=== PATIENT | female | born 1935 | race Caucasian/White ===

== ENCOUNTER 2023-08-19 19:42 | Inpatient (IN) ==
[2023-08-19] MEDS: Morphine 4 MG/ML VIAL (1 ml) IV ONE (20:10)
[2023-08-19] MEDS: Ondansetron 4 mg VIAL 2 MG/ML 2 ml VIAL IV ONE (20:11)
[2023-08-19 20:18] LABS: ABS Monocytes 0.3 10^3/uL (0.0-0.9); ABS Neutrophils 3.7 10^3/uL (1.5-7.6); Eosinophil % 0.8 %; Hematocrit 39.3 % (35-45); Hemoglobin 13.2 g/dL (11.5-14.3); Lymphocyte % 20.2 %; Mean Corpuscular Hemoglobin 27.8 pg (27-33); Mean Corpuscular Hgb Conc 33.5 g/dL (31-36); Nucleated Red Blood Cells % 0.1 %/100WBC (0.0-0.8); Platelet Count 193 10^3/uL (150-450); Red Blood Count 4.74 10^6/uL (3.63-4.92); Red Cell Distribution Width 14.3 % (12-17); White Blood Count 5.1 10^3/uL (3.8-11.8)
[2023-08-19 20:25] LABS: Activated Partial Thrombo Time 27.1 seconds (26.0-38.0); INR 0.95 (0.83-1.13)
[2023-08-19 21:06] LABS: Albumin 3.7 g/dL (3.2-5.2); Albumin/Globulin Ratio 1.4 (1-3); Calcium 9.2 mg/dL (8.6-10.3); Creatinine, Serum 1.46 mg/dL (0.51-0.95); Globulin 2.6 g/dL (2-4); Potassium 4.2 mmol/L (3.5-5.0); Total Bilirubin 0.5 mg/dL (0.2-1.0); Total Protein 6.3 g/dL (6.4-8.9); eGFR CKD-EPI 34.8 (>60)
[2023-08-19] MEDS: NS 0.9% 1000 ml BAG 1,000 ML IV SCH (22:22)
[2023-08-20 01:21] LABS: Vitamin D Total 25(OH) 11.5 ng/mL (20-50)
[2023-08-20 06:42] LABS: ABS Eosinophils 0.1 10^3/uL (0.0-0.5); ABS Lymphocytes 0.9 10^3/uL (1.0-4.8); ABS Monocytes 0.3 10^3/uL (0.0-0.9); ABS Neutrophils 9.9 10^3/uL (1.5-7.6); ABS Nucleated RBC 0.01 10^3/ul; Eosinophil % 0.5 %; Hematocrit 39.3 % (35-45); Lymphocyte % 8.3 %; Mean Corpuscular Hemoglobin 28.1 pg (27-33); Mean Corpuscular Hgb Conc 33.1 g/dL (31-36); Mean Corpuscular Volume 84.9 fL (80-97); Mean Platelet Volume 8.1 fL (7.5-11.2); Nucleated Red Blood Cells % 0.1 %/100WBC (0.0-0.8); Platelet Count 174 10^3/uL (150-450); Red Blood Count 4.63 10^6/uL (3.63-4.92); Red Cell Distribution Width 14.3 % (12-17); White Blood Count 11.1 10^3/uL (3.8-11.8)
[2023-08-20 07:02] LABS: Calcium 8.4 mg/dL (8.6-10.3); Creatinine, Serum 1.13 mg/dL (0.51-0.95); Magnesium 2.1 mg/dL (1.9-2.7); Potassium 4.9 mmol/L (3.5-5.0); eGFR CKD-EPI 47.4 (>60)
[2023-08-20 07:10] LABS: Activated Partial Thrombo Time 28.2 seconds (26.0-38.0); INR 0.99 (0.83-1.13)
[2023-08-20] MEDS: Morphine 2 MG/ML SYRINGE IV PRN (08:35)
[2023-08-20] MEDS ORDERED: Heparin 5000 UNITS/ML 1 mL VIAL SUBCUT SCH (09:00)
[2023-08-20] MEDS: Iodixanol (CONTRAST) 320 MG/ML 100 ML SDV IV ONE (09:06)
[2023-08-20] MEDS ORDERED: Lidocaine 2% PF 5 ML VIAL ONE (16:36)
[2023-08-20] MEDS ORDERED: Propofol 10 MG/ML 20 ML BTL ONE (16:36)
[2023-08-20] MEDS ORDERED: fentaNYL 100 mcg/2 ml 50 MCG/ML VIAL ONE (16:36)
[2023-08-20] MEDS ORDERED: Midazolam 2 mg/2 ml VIAL 1 mg/ml 2 ml VIAL (2 mg) ONE (16:36)
[2023-08-20] MEDS ORDERED: Phenylephrine 40 mcg/mL 10mL (400mcg) SYRINGE ONE (17:54)
[2023-08-20] MEDS ORDERED: ceFAZolin VIAL VIAL ONE ×2 (18:14→18:15)
[2023-08-20] MEDS ORDERED: Ondansetron 4 mg VIAL 2 MG/ML 2 ml VIAL ONE (18:27)
[2023-08-20] MEDS ORDERED: Dexamethasone IV 4 MG/ML VIAL 1 ml VIAL ONE (18:27)
[2023-08-20] MEDS ORDERED: HYDROmorphone 0.5 MG/0.5 ML SYRINGE ONE (18:28)
[2023-08-20] MEDS ORDERED: Vancomycin 1,000 MG VIAL ONE (18:53)
[2023-08-20] MEDS ORDERED: Ondansetron ODT 4 mg TAB 4 MG TAB PO PRN (19:51)
[2023-08-20] MEDS ORDERED: Magnesium Hydroxide LIQ 30 ML UDC PO PRN (19:51)
[2023-08-20] MEDS ORDERED: HYDROmorphone 1 MG/1 ML SYRINGE IV PRN (19:54)
[2023-08-20] MEDS ORDERED: Ondansetron 4 mg VIAL 2 MG/ML 2 ml VIAL IV PRN (19:54)
[2023-08-20] MEDS ORDERED: Naloxone 0.4 mg VIAL 0.4 mg/ml 1 ml VIAL IV PRN (19:54)
[2023-08-20] MEDS ORDERED: fentaNYL 100 mcg/2 ml 50 MCG/ML VIAL IV PRN (19:54)
[2023-08-20] MEDS ORDERED: ceFAZolin 2 GM in NS PREMIX 2 GM/100 ML BAG IVPB SCH (20:00)
[2023-08-20] MEDS: Sulfur Hexaflouride MICROSPHR 25 MG VIAL IV ONE (23:12)
[2023-08-20] MEDS: Magnesium Hydroxide LIQ 30 ML UDC PO SCH (23:12)
[2023-08-20] MEDS: Metoclopramide 5 MG/ML VIAL (10 mg) IV SLOW PU ONE (23:12)
[2023-08-20] MEDS: Lactated Ringers 1000 ml BAG 1,000 ML IV SCH (23:25)
[2023-08-21] MEDS: ceFAZolin 2 GM PREMIX 2 GM/50 ML BAG IV SCH (01:59)
[2023-08-21] MEDS: NS 0.9% 500 ml BAG 500 ML IV ONE (05:06)
[2023-08-21 06:19] LABS: ABS Lymphocytes 0.6 10^3/uL (1.0-4.8); ABS Monocytes 0.4 10^3/uL (0.0-0.9); ABS Neutrophils 9.1 10^3/uL (1.5-7.6); Eosinophil % 0.1 %; Hematocrit 34.5 % (35-45); Hemoglobin 11.4 g/dL (11.5-14.3); Lymphocyte % 5.9 %; Mean Corpuscular Hemoglobin 28.1 pg (27-33); Mean Corpuscular Hgb Conc 33.1 g/dL (31-36); Mean Platelet Volume 8.4 fL (7.5-11.2); Platelet Count 154 10^3/uL (150-450); Red Blood Count 4.06 10^6/uL (3.63-4.92); Red Cell Distribution Width 14.6 % (12-17); White Blood Count 10.1 10^3/uL (3.8-11.8)
[2023-08-21 06:48] LABS: Calcium 8.2 mg/dL (8.6-10.3); Creatinine, Serum 1.5 mg/dL (0.51-0.95); Magnesium 1.8 mg/dL (1.9-2.7); Potassium 4.7 mmol/L (3.5-5.0); eGFR CKD-EPI 33.7 (>60)
[2023-08-21] MEDS ORDERED: Mometasone NASAL (NF) SPRAY BOTH NARES SCH (09:00)
[2023-08-21] MEDS ORDERED: Saline NASAL SPRAY 0.65% BTL BOTH NARES SCH (09:00)
[2023-08-21] MEDS: Vitamin THERAPEUTIC TAB PO SCH (09:34)
[2023-08-21] MEDS: Calcium Carb (TUMS) 500 mg CHEW TAB PO SCH (09:35)
[2023-08-21] MEDS: Magnesium Sulfate IV 1GM/100ML 1 GM/100 ML BAG IV ONE (09:36)
[2023-08-21] MEDS: Enoxaparin 40 MG/0.4 ML SYR SUBCUT SCH (11:52)
[2023-08-21] MEDS: Ondansetron 4 mg VIAL 2 MG/ML 2 ml VIAL IV PRN (11:53)
[2023-08-21] MEDS: Lactated Ringers 1000 ml BAG 1,000 ML IV SCH (14:05)
[2023-08-21] MEDS: Lactated Ringers 1000 ml BAG 500 ML IV ONE (14:29)
[2023-08-22 05:37] LABS: ABS Monocytes 0.6 10^3/uL (0.0-0.9); ABS Neutrophils 8.3 10^3/uL (1.5-7.6); ABS Nucleated RBC 0.01 10^3/ul; Eosinophil % 0.5 %; Hematocrit 30.8 % (35-45); Hemoglobin 10.4 g/dL (11.5-14.3); Lymphocyte % 9.7 %; Mean Corpuscular Hemoglobin 28.6 pg (27-33); Mean Corpuscular Hgb Conc 33.9 g/dL (31-36); Mean Corpuscular Volume 84.4 fL (80-97); Mean Platelet Volume 8.8 fL (7.5-11.2); Nucleated Red Blood Cells % 0.1 %/100WBC (0.0-0.8); Platelet Count 139 10^3/uL (150-450); Red Blood Count 3.65 10^6/uL (3.63-4.92); Red Cell Distribution Width 14.8 % (12-17); White Blood Count 9.9 10^3/uL (3.8-11.8)
[2023-08-22 05:50] LABS: Calcium 8.3 mg/dL (8.6-10.3); Creatinine, Serum 1.78 mg/dL (0.51-0.95); Magnesium 2.6 mg/dL (1.9-2.7); Potassium 5.1 mmol/L (3.5-5.0); eGFR CKD-EPI 27.5 (>60)
[2023-08-22] MEDS: Furosemide 40 mg/4 ml IV VIAL IV SLOW PU ONE (09:27)
[2023-08-22 09:48] LABS: Urine Appearance Clear; Urine Bilirubin Negative (Negative); Urine Blood Negative (Negative); Urine Color Yellow; Urine Glucose Negative (Negative); Urine Ketones 1+ (Negative); Urine Nitrite Negative (Negative); Urine Protein 1+ (>=30 mg/dL) (Negative); Urine Specific Gravity 1.037 (1.002-1.030); Urine Urobilinogen Negative (Negative); Urine pH 5.5 (5.0-8.0)
[2023-08-22 10:12] LABS: Urine Bacteria Absent /HPF (Absent); Urine Red Blood Cell Trace(0-2/hpf) /HPF (0-Trace); Urine Squamous Epithelial Cell Present /HPF (Absent); Urine White Blood Cell Trace(0-5/hpf) /HPF (0-Trace)
[2023-08-22 10:16] LABS: Phosphorus 3.5 mg/dL (2.5-5.0)
[2023-08-22] MEDS ORDERED: Enoxaparin 30 MG/0.3 ML SYR SUBCUT SCH (12:00)
[2023-08-22 15:20] LABS: Calcium 8.2 mg/dL (8.6-10.3); Creatinine, Serum 1.79 mg/dL (0.51-0.95); Potassium 4.8 mmol/L (3.5-5.0); eGFR CKD-EPI 27.3 (>60)
[2023-08-22] MEDS: Lactulose 30 ml UDC PO PRN (16:01)
[2023-08-22 18:43] LABS: INR 0.99 (0.83-1.13)
[2023-08-22] MEDS: Heparin 5000 UNITS/ML 1 mL VIAL SUBCUT SCH (21:13)
[2023-08-23 05:56] LABS: ABS Eosinophils 0.2 10^3/uL (0.0-0.5); ABS Monocytes 0.5 10^3/uL (0.0-0.9); ABS Neutrophils 6.3 10^3/uL (1.5-7.6); Hematocrit 29.6 % (35-45); Hemoglobin 10.1 g/dL (11.5-14.3); Lymphocyte % 12.6 %; Mean Corpuscular Hemoglobin 28.7 pg (27-33); Mean Corpuscular Volume 84.2 fL (80-97); Platelet Count 150 10^3/uL (150-450); Red Blood Count 3.51 10^6/uL (3.63-4.92); Red Cell Distribution Width 14.9 % (12-17)
[2023-08-23 06:16] LABS: Calcium 8.5 mg/dL (8.6-10.3); Creatinine, Serum 2.01 mg/dL (0.51-0.95); Magnesium 2.9 mg/dL (1.9-2.7); Potassium 4.3 mmol/L (3.5-5.0); eGFR CKD-EPI 23.7 (>60)
[2023-08-23] MEDS: Polyethylene Glycol 3350 17 GM PACKET PO SCH (09:20)
[2023-08-24 06:52] LABS: ABS Eosinophils 0.3 10^3/uL (0.0-0.5); ABS Lymphocytes 1.3 10^3/uL (1.0-4.8); ABS Monocytes 0.4 10^3/uL (0.0-0.9); ABS Neutrophils 4.2 10^3/uL (1.5-7.6); Hemoglobin 9.3 g/dL (11.5-14.3); Lymphocyte % 20.2 %; Mean Corpuscular Hemoglobin 28.9 pg (27-33); Mean Corpuscular Hgb Conc 34.6 g/dL (31-36); Mean Corpuscular Volume 83.5 fL (80-97); Mean Platelet Volume 9.1 fL (7.5-11.2); Platelet Count 145 10^3/uL (150-450); Red Blood Count 3.24 10^6/uL (3.63-4.92); Red Cell Distribution Width 14.6 % (12-17); White Blood Count 6.2 10^3/uL (3.8-11.8)
[2023-08-24 07:25] LABS: Magnesium 2.5 mg/dL (1.9-2.7); Potassium 4.3 mmol/L (3.5-5.0)
[2023-08-24 08:05] LABS: Creatinine, Serum 1.58 mg/dL (0.51-0.95); eGFR CKD-EPI 31.7 (>60)
[2023-08-24 10:40] VITALS: BP 128/53
[2023-08-24 11:58] LABS: Rapid COVID-19 Molecular Undetected (Undetected)
== END 2023-08-24 13:50 | DRG 521 ==
LOC: ED 19:42 → EDHOLD 21:38 → SUATTDRO 21:38 → EDHOLD 08-20 00:11 → MEDTELE 08-20 01:49 → SSU 08-20 22:11
PROVIDERS: ADMIT Internal Medicine; ATTEND Internal Medicine

== ENCOUNTER 2023-09-07 15:02 | Inpatient (IN) ==
[2023-09-07 16:30] LABS: ABS Basophils 0.1 10^3/uL (0.0-0.1); ABS Eosinophils 0.1 10^3/uL (0.0-0.5); ABS Lymphocytes 1.1 10^3/uL (1.0-4.8); ABS Monocytes 0.4 10^3/uL (0.0-0.9); ABS Neutrophils 5.4 10^3/uL (1.5-7.6); Eosinophil % 1.6 %; Hematocrit 21.3 % (35-45); Lymphocyte % 15.6 %; Mean Corpuscular Hemoglobin 28.9 pg (27-33); Mean Corpuscular Hgb Conc 32.7 g/dL (31-36); Mean Corpuscular Volume 88.2 fL (80-97); Mean Platelet Volume 7.7 fL (7.5-11.2); Platelet Count 331 10^3/uL (150-450); Red Blood Count 2.42 10^6/uL (3.63-4.92); Red Cell Distribution Width 16.6 % (12-17); White Blood Count 7.1 10^3/uL (3.8-11.8)
[2023-09-07] MEDS: Pantoprazole VIAL 40 MG VIAL IV ONE (16:43)
[2023-09-07] MEDS: Pantoprazole 80 mg in NS BAG 80 MG/250 ML BAG IV ONE (16:52)
[2023-09-07 17:08] LABS: Albumin/Globulin Ratio 1.6 (1-3); Calcium 8.8 mg/dL (8.6-10.3); Creatinine, Serum 1.17 mg/dL (0.51-0.95); Globulin 1.9 g/dL (2-4); Potassium 4.2 mmol/L (3.5-5.0); Total Bilirubin 0.3 mg/dL (0.2-1.0); Total Protein 4.9 g/dL (6.4-8.9); eGFR CKD-EPI 45.4 (>60)
[2023-09-07 21:34] LABS: Hematocrit 25.1 % (35-45); Hemoglobin 8.2 g/dL (11.5-14.3)
[2023-09-08 06:10] LABS: Urine Appearance Clear; Urine Bilirubin Negative (Negative); Urine Blood 1+ (Negative); Urine Color Light-Yellow; Urine Glucose Negative (Negative); Urine Ketones Negative (Negative); Urine Nitrite Negative (Negative); Urine Protein Negative (Negative); Urine Specific Gravity 1.021 (1.002-1.030); Urine Urobilinogen Negative (Negative)
[2023-09-08 06:11] LABS: Hematocrit 23.6 % (35-45); Hemoglobin 8.1 g/dL (11.5-14.3); Mean Corpuscular Hemoglobin 28.7 pg (27-33); Mean Corpuscular Hgb Conc 34.2 g/dL (31-36); Mean Platelet Volume 7.8 fL (7.5-11.2); Platelet Count 277 10^3/uL (150-450); Red Blood Count 2.81 10^6/uL (3.63-4.92); Red Cell Distribution Width 17.6 % (12-17); White Blood Count 6.4 10^3/uL (3.8-11.8)
[2023-09-08 06:33] LABS: Calcium 8.2 mg/dL (8.6-10.3); Creatinine, Serum 1.01 mg/dL (0.51-0.95); Potassium 4.2 mmol/L (3.5-5.0); eGFR CKD-EPI 54.2 (>60)
[2023-09-08] MEDS: Pantoprazole VIAL 40 MG VIAL IV SCH (08:16)
[2023-09-08 08:18] LABS: Urine Bacteria Absent /HPF (Absent); Urine Red Blood Cell 1+(3-5/hpf) /HPF (0-Trace); Urine White Blood Cell 2+(11-20/hpf) /HPF (0-Trace)
[2023-09-08 12:58] LABS: Ferritin 111.3 ng/mL (11-307)
[2023-09-08 13:02] LABS: Folate 15.38 ng/mL (5.90-24.80)
[2023-09-08] MEDS: Cyanocobalamin INJ 1,000 MCG/ML VIAL 1 ML VIAL IM ONE (16:31)
[2023-09-09 05:55] LABS: Hemoglobin 8.2 g/dL (11.5-14.3); Mean Corpuscular Hemoglobin 28.9 pg (27-33); Mean Corpuscular Hgb Conc 34.2 g/dL (31-36); Mean Corpuscular Volume 84.5 fL (80-97); Mean Platelet Volume 7.8 fL (7.5-11.2); Platelet Count 266 10^3/uL (150-450); Red Blood Count 2.84 10^6/uL (3.63-4.92); Red Cell Distribution Width 17.9 % (12-17); White Blood Count 5.9 10^3/uL (3.8-11.8)
[2023-09-09 16:19] LABS: Hematocrit 24.9 % (35-45); Hemoglobin 8.4 g/dL (11.5-14.3)
[2023-09-10 07:04] LABS: ABS Basophils 0.1 10^3/uL (0.0-0.1); ABS Eosinophils 0.3 10^3/uL (0.0-0.5); ABS Lymphocytes 1.3 10^3/uL (1.0-4.8); ABS Monocytes 0.4 10^3/uL (0.0-0.9); ABS Neutrophils 3.7 10^3/uL (1.5-7.6); Eosinophil % 4.5 %; Hematocrit 24.8 % (35-45); Hemoglobin 8.2 g/dL (11.5-14.3); Lymphocyte % 23.4 %; Mean Corpuscular Hemoglobin 28.4 pg (27-33); Mean Corpuscular Hgb Conc 33.2 g/dL (31-36); Mean Corpuscular Volume 85.6 fL (80-97); Mean Platelet Volume 7.8 fL (7.5-11.2); Nucleated Red Blood Cells % 0.1 %/100WBC (0.0-0.8); Platelet Count 251 10^3/uL (150-450); Red Blood Count 2.89 10^6/uL (3.63-4.92); Red Cell Distribution Width 17.8 % (12-17); White Blood Count 5.7 10^3/uL (3.8-11.8)
[2023-09-10 07:20] LABS: Calcium 8.2 mg/dL (8.6-10.3); Creatinine, Serum 1.02 mg/dL (0.51-0.95); eGFR CKD-EPI 53.6 (>60)
[2023-09-10 15:51] LABS: Hematocrit 24.2 % (35-45); Hemoglobin 8.3 g/dL (11.5-14.3); Mean Corpuscular Hemoglobin 28.7 pg (27-33); Mean Corpuscular Hgb Conc 34.3 g/dL (31-36); Mean Corpuscular Volume 83.7 fL (80-97); Mean Platelet Volume 7.4 fL (7.5-11.2); Platelet Count 251 10^3/uL (150-450); Red Cell Distribution Width 17.4 % (12-17); White Blood Count 5.5 10^3/uL (3.8-11.8)
[2023-09-11 06:25] LABS: Hematocrit 24.5 % (35-45); Mean Corpuscular Hemoglobin 27.9 pg (27-33); Mean Corpuscular Hgb Conc 32.9 g/dL (31-36); Mean Corpuscular Volume 84.7 fL (80-97); Platelet Count 252 10^3/uL (150-450); Red Blood Count 2.89 10^6/uL (3.63-4.92); Red Cell Distribution Width 18.1 % (12-17); White Blood Count 5.2 10^3/uL (3.8-11.8)
[2023-09-11 06:45] LABS: Calcium 8.1 mg/dL (8.6-10.3); Creatinine, Serum 1.04 mg/dL (0.51-0.95); eGFR CKD-EPI 52.3 (>60)
[2023-09-11] MEDS: Cyanocobalamin INJ 1,000 MCG/ML VIAL 1 ML VIAL IM ONE (09:17)
[2023-09-11] MEDS: NS 0.9% 1000 ml BAG 1,000 ML IV ONE (11:32)
[2023-09-11 15:52] VITALS: BP 146/57
== END 2023-09-11 16:15 | DRG 377 ==
LOC: EDHOLD 15:02 → ED 15:02 → SUATTDRO 15:56 → EDHOLD 20:24 → MED 21:06
PROVIDERS: ADMIT Internal Medicine; ATTEND Hospitalist